=== PATIENT | male | born 1940 | race Hispanic/Latino ===

== ENCOUNTER 2022-07-02 05:41 | Day surgery (SDC) | payer MEDICARE ==
[2022-07-01 12:20] VITALS: BMI 33.3
[2022-07-02] MEDS ORDERED: Lidocaine 1% (PF) 30 ML VIAL ONE (06:14)
[2022-07-02] MEDS ORDERED: Nitroglycerin 100MG/250ML BOT 0 ML ONE (06:30)
[2022-07-02] MEDS ORDERED: FENTANYL 50 MCG/ML 1 ML VIAL ONE (06:31)
[2022-07-02] MEDS ORDERED: Midazolam HCl 2 mg/2 ml Vial ONE (06:31)
[2022-07-02 07:43] LABS: Cardiac Risk 4.1 (Less than 4.5)
[2022-07-02 08:18] LABS: Site PA; Site RA
[2022-07-02] MEDS ORDERED: Heparin 10,000 UNITS/ 10 ML VIAL ONE (08:48)
== END 2022-07-02 11:45 | disposition home or self-care (01) ==
LOC: SDC 05:41
PROVIDERS: ATTEND Internal Medicine Cardiovascular Disease
PROC: 4A023N7 Measurement of Cardiac Sampling and Pressure, Left Heart, Percutaneous Approach (ICD-10-PCS; principal; 2022-07-02)
PROC: B2111ZZ Fluoroscopy of Multiple Coronary Arteries using Low Osmolar Contrast (ICD-10-PCS; 2022-07-02)
DX: I35.0 Nonrheumatic aortic (valve) stenosis (principal); I25.10 Atherosclerotic heart disease of native coronary artery without angina pectoris; I12.0 Hypertensive chronic kidney disease with stage 5 chronic kidney disease or end stage renal disease; E11.22 Type 2 diabetes mellitus with diabetic chronic kidney disease; N18.6 End stage renal disease; D63.1 Anemia in chronic kidney disease; I65.23 Occlusion and stenosis of bilateral carotid arteries; E78.2 Mixed hyperlipidemia; K21.9 Gastro-esophageal reflux disease without esophagitis; N40.0 Benign prostatic hyperplasia without lower urinary tract symptoms; E11.51 Type 2 diabetes mellitus with diabetic peripheral angiopathy without gangrene; Z86.73 Personal history of transient ischemic attack (TIA), and cerebral infarction without residual deficits; Z87.891 Personal history of nicotine dependence; Z79.4 Long term (current) use of insulin; Z79.82 Long term (current) use of aspirin; Z79.899 Other long term (current) drug therapy; Z99.2 Dependence on renal dialysis
CPT/HCPCS: 80061; 82810; 82962; 85347; C1751; C1769 ×7; J3010; 36415; 36416; 93456; 99152; 99153; J1644; J2001; J2250